=== PATIENT | female | born 2000 | race Two or more races ===

== ENCOUNTER → 2019-09-21 10:42 | Outpatient (CLI) | payer MEDICAID | END | disposition home or self-care (01) | LOC: D.US 10:42 | PROVIDERS: ATTEND Student in an Organized Health Care Education/Training Program | DX: N63.11 Unspecified lump in the right breast, upper outer quadrant (principal); N63.25 Unspecified lump in the left breast, overlapping quadrants ==

== ENCOUNTER 2019-10-30 08:18 | Inpatient (IN) | payer MEDICAID ==
[~2019-10-30] VITALS: Ht 157.5 cm; Wt 84.5 kg
[2019-10-30 08:51] LABS: BILIRUBIN NEGATIVE (NEGATIVE); KETONE NEGATIVE (NEGATIVE); NITRITE NEGATIVE (NEGATIVE); UROBILINOGEN NORMAL mg/dL (< 2)
[2019-10-30 08:53] LABS: BACTERIA MANY HPF (NONE SEEN); EPITHELIAL CELLS 0-5 /hpf (0-5)
[2019-10-30 12:23] LABS: HEMATOCRIT 30.6 % (36.0-48.0); HEMOGLOBIN 9.6 g/dL (12-16); MCH 25.6 pg (26.0-34.0); MCHC 31.4 g/dL (31.0-37.0); MCV 81.6 fL (80.0-100.0); MEAN PLATELET VOLUME 11.6 fL (7.4-10.4); RBC 3.75 10x6/uL (4.00-5.40); RDW 15.5 % (11.5-14.5); WBC 9.2 10x3/uL (4.8-10.8)
[2019-10-30 12:53] VITALS: BP 96/57; Ht 157.5 cm; Wt 84.5 kg
[2019-10-30 18:01] LABS: UDS - AMPHET NEGATIVE QUAL (NEGATIVE); UDS - BARB NEGATIVE QUAL (NEGATIVE); UDS - BENZO NEGATIVE QUAL (NEGATIVE); UDS - COCAINE NEGATIVE QUAL (NEGATIVE); UDS - OPIATE NEGATIVE QUAL (NEGATIVE); UDS - PCP NEGATIVE QUAL (NEGATIVE); UDS - THC NEGATIVE QUAL (NEGATIVE)
--- NOTE | 2019-10-30 21:30 | NUR ---
PT TO ROOM 1257. AMBULATORY. Chrissy CASTELLON RN
--- NOTE | 2019-10-30 21:40 | NUR ---
PT GIVEN SANDWICH TRAY AND DRINK AT THIS TIME. DENIES PAIN. S/O AND HAIRSPRING INSPECTOR AT THE BEDSIDE. Chrissy CASTELLON RN
--- NOTE | 2019-10-30 22:45 | NUR ---
PT REC'D IN BED WITH FAMILY. DENIES PAIN AT THIS TIME. NO DISTRESS NOTED Chrissy CASTELLON RN
--- NOTE | 2019-10-31 00:42 | NUR ---
PT GIVEN NEW ICE PACK AT THIS TIME. PT DENIES NEEDING PAIN MEDICATION. Chrissy CASTELLON RN
--- NOTE | 2019-10-31 02:10 | NUR ---
PT REC'D IN BED AT THIS TIME. ASLEEP. NO DISTRESS NOTED. Chrissy CASTELLON RN
--- NOTE | 2019-10-31 04:00 | NUR ---
PT REC'D IN BED ASLEEP AT THIS TIME. NO DISTRESS NOTED. Chrissy CASTELLON RN
[2019-10-31 06:24] LABS: BASOPHILS 0.3 % (0-2); EOSINOPHILS 0.4 % (0-7); HEMATOCRIT 30.3 % (36.0-48.0); HEMOGLOBIN 9.4 g/dL (12-16); IMMATURE GRANULOCYTES 0.4 % (0-5); LYMPHOCYTES 21.7 % (15-50); MCH 25.3 pg (26.0-34.0); MCV 81.7 fL (80.0-100.0); MONOCYTES 6.3 % (2-11); NEUTROPHILS 70.9 % (40-80); PLATELET COUNT 213 10x3/uL (130-400); RBC 3.71 10x6/uL (4.00-5.40); RDW 15.5 % (11.5-14.5); WBC 10.3 10x3/uL (4.8-10.8)
--- NOTE | 2019-10-31 06:38 | NUR ---
PT MEDICATED WITH MOTRIN FOR PAIN OF 5/10. PT CRAMPING. Chrissy CASTELLON RN
[2019-10-31 08:00] VITALS: BP 88/54
--- NOTE | 2019-10-31 08:00 | NUR ---
RECEIVED PT SITTING UP IN BED. AWAKE. VSS. HRRR WITHOUT AUDIBLLE MURMUR. BBS CLEAR. BS X 4. ABDOMEN SOFT/NON-DISTENDED. FUNDUS FIRM AT U/2. RUBRA LOCHIA MOD AMT. NO CLOTS OR HEAVY BLEEDING PER PT STATES. PT HAS INVENTORY TECHNICIAN IN ROOM WITH PT. NEG HOMANS' SIGN. PPP. NO EDEMA NOTED TO BLE. PT C/O ABDOMINAL CRAMPING OF "4" ON 0-1O PAIN SCALE. TYLENOL 650 MG GIVEN PO ORDERED. PT INSTRUCTED ON MED. VERBALIZES UNDERSTANDING.
--- NOTE | 2019-10-31 09:30 | NUR ---
DR HATFIELD HERE. VISITS WITH PT.
--- NOTE | 2019-10-31 10:30 | NUR ---
PT SITTING UP IN BED. VISITS WITH VISITOR. DENIES C/O OR NEEDS.
--- NOTE | 2019-10-31 12:04 | NUR ---
SALINE LOCK DC'D WITH BLACK TIP INTACT. PRESSURE BANDAGE TO SITE. PT UP TO SHOWER. LINENS PROVIDED.
--- NOTE | 2019-10-31 14:00 | NUR ---
PT SITTING UP IN BED. VISITS WITH VISITOR. DENIES PAIN OR NEEDS.
--- NOTE | 2019-10-31 15:24 | NUR ---
PT LYING TO RIGHT SIDE IN BED. EYES CLOSED. RESP NON-LABORED. PT NOT DISTURBED TO ALLOW FOR REST. SR UP X 2. CALL LIGHT IN REACH.
--- NOTE | 2019-10-31 16:46 | NUR ---
PT SITTING UP IN BED. CONSUMING DINNER. DENIES PAIN OR NEEDS.
--- NOTE | 2019-10-31 18:25 | NUR ---
PT GIVEN DISCHARGE INSTRUCTIONS VIA PT BONE TENDER. PT VERBALIZES UNDERSTANDING OF ALL INSTRUCTIONS. COPIES IN [place] GIVEN TO PT. PT AWAITS INFANT'S DISCHARGE.
[2019-11-02 07:15] LABS: RAPID PLASMA REAGIN Non Reactive (Non Reactive)
== END 2019-10-31 19:45 | disposition home or self-care (01) | DRG 807 ==
LOC: D.LDO 08:18 → D.LD 12:22
PROVIDERS: ADMIT Obstetrics & Gynecology; ATTEND Obstetrics & Gynecology
PROC: 10E0XZZ Delivery of Products of Conception, External Approach (ICD-10-PCS; principal; 2019-10-30)
PROC: 0HQ9XZZ Repair Perineum Skin, External Approach (ICD-10-PCS; 2019-10-30)
DX: O70.0 First degree perineal laceration during delivery (principal); Z37.0 Single live birth; Z3A.39 39 weeks gestation of pregnancy